=== PATIENT | male | born 1940 | race Caucasian/White ===

== ENCOUNTER 2021-06-12 14:59 | Inpatient (IN) ==
[2021-06-12] MEDS ORDERED: Morphine Sulfate Oral CONC 10 MG/0.5 ML ORAL.SYG SL PRN (16:34)
[2021-06-12] MEDS ORDERED: *HR* LORazepam Oral Conc 2 MG/ML PO PRN (16:34)
[2021-06-12] MEDS ORDERED: Haloperidol Oral Conc 10 MG/5 ML UDC PO PRN (16:39)
[2021-06-12] MEDS ORDERED: Ondansetron Oral Soln 2 MG/2.5 ML ORAL.SYG PO PRN (16:40)
[2021-06-12] MEDS ORDERED: Albuterol 2.5 MG/3 ML NEBULIZER IH PRN (16:42)
[2021-06-12] MEDS: *HR* LORazepam Oral Conc 2 MG/ML SL PRN (20:44)
[2021-06-12] MEDS: Morphine Sulfate Oral CONC 10 MG/0.5 ML ORAL.SYG SL PRN ×2 (20:45→22:26)
[2021-06-12] MEDS: Scopolamine Patch 1.5 MG PATCH.TD72 TD SCH (21:47)
[2021-06-13] MEDS: Scopolamine Patch 1.5 MG PATCH.TD72 TD SCH (00:55)
[2021-06-13] MEDS: *HR* LORazepam Oral Conc 2 MG/ML SL PRN ×5 (00:55→15:07)
[2021-06-13] MEDS: Morphine Sulfate Oral CONC 10 MG/0.5 ML ORAL.SYG SL PRN ×5 (01:01→15:07)
[2021-06-13 07:31] LABS: Basophils % 0.1 %; Eosinophils # 0.1 K/mcL (0.0-0.6); Eosinophils % 1.4 %; Hematocrit 24.3 % (37.5-50.1); Hemoglobin 7.7 g/dL (12.9-16.9); Immature Granulocytes % 0.6 % (0-4); Lymphocytes # 0.6 K/mcL (0.6-4.6); Lymphocytes % 6.3 %; Mean Corpuscular HGB Conc 31.7 g/dL (31.6-35.5); Mean Corpuscular Volume 100.8 fL (83.0-100.0); Mean Platelet Volume 10.2 fL (9.4-12.4); Monocytes # 0.8 K/mcL (0.0-1.3); Monocytes % 8.5 %; Neutrophils # 7.7 K/mcL (1.6-8.9); Platelet Count 463 K/mcL (140-400); Red Blood Count 2.41 M/mcL (4.19-5.50); Segmented Neutrophils % 83.1 %; White Blood Count 9.3 K/mcL (4.3-11.1)
[2021-06-13 07:50] LABS: Calcium 7.8 mg/dL (8.6-10.3)
[2021-06-13 08:35] LABS: Anisocytosis 2+ (Not Present); Platelet Estimate Increased (Normal)
[2021-06-13] MEDS ORDERED: Haloperidol Lactate 5 MG/ML VIAL IM PRN (14:50)
[2021-06-13] MEDS: Atropine 1% Opth Drops 100 DROP/5 ML BOTTLE SL PRN (19:52)
[2021-06-14] MEDS: Atropine 1% Opth Drops 100 DROP/5 ML BOTTLE SL PRN ×6 (00:20→22:00)
[2021-06-14] MEDS: Morphine Sulfate Oral CONC 10 MG/0.5 ML ORAL.SYG SL PRN ×4 (02:02→22:15)
[2021-06-14] MEDS: *HR* LORazepam Oral Conc 2 MG/ML SL PRN (08:01)
[2021-06-14] MEDS: Acetaminophen 650 MG RECTAL SUPP RC PRN ×2 (15:04→22:00)
[2021-06-15] MEDS: Atropine 1% Opth Drops 100 DROP/5 ML BOTTLE SL PRN ×4 (02:46→18:33)
[2021-06-15] MEDS: Morphine Sulfate Oral CONC 10 MG/0.5 ML ORAL.SYG SL PRN ×2 (03:25→09:43)
[2021-06-15] MEDS: Scopolamine Patch 1.5 MG PATCH.TD72 TD SCH (22:04)
[2021-06-16] MEDS: Atropine 1% Opth Drops 100 DROP/5 ML BOTTLE SL PRN ×4 (00:43→10:44)
[2021-06-16] MEDS: Morphine Sulfate Oral CONC 10 MG/0.5 ML ORAL.SYG SL PRN ×6 (01:13→10:43)
[2021-06-16 07:59] VITALS: BP 65/37; PULSE 83; RESP 22; TEMP 98.3; O2SAT 90
[2021-06-16] MEDS ORDERED: Scopolamine Patch 1.5 MG PATCH.TD72 TD SCH (09:00)
== END 2021-06-16 18:32 | disposition expired | DRG 951 ==
LOC: INPPIK 20:23
PROVIDERS: ADMIT Internal Medicine; ATTEND Internal Medicine